=== PATIENT | female | born 1960 | race Caucasian/White ===

== ENCOUNTER 2016-08-17 20:29 | Emergency (ER) | payer BC ==
[2016-08-17 20:51] VITALS: BP 116/66
--- NOTE | 2016-08-17 21:02 | UC ---
Complaint Female HPI - HPI Summary HPI Summary: urinary burning x 1 day +frequency , no fever, no chills, no flank pain - History Of Current Complaint Chief Complaint: UCGU Stated Complaint: URINARY Time Seen by Provider: 08/17/16 20:38 Hx Obtained From: Patient Hx Last Menstrual Period: More than a year ago. Onset/Duration: Gradual Onset, Lasting Days - 1, Still Present Timing: Constant Severity Initially: Moderate Severity Currently: Moderate Character: Burning Aggravating Factor(s): Urination Associated Signs And Symptoms: Negative: Fever, Back Pain, Vaginal Bleeding/ Discharge, Vaginal Discharge, Nausea, Vomiting(# Of Episodes =), Genital Swelling, Genital Blisters, Retained Foregin Body (Specify) - Allergies/Home Medications Allergies/Adverse Reactions: Allergies Allergy/AdvReac Type Severity Reaction Status Date / Time Sulfa Drugs Allergy Intermediate Hives Verified 08/17/16 20:52 dust,mites Allergy Congestion Uncoded 08/17/16 20:52 Home Medications: Home Medications Calcium Carbonate-Vitamin D [Calcium 600+D] 1 tab PO DAILY 08/17/16 [History Confirmed 08/17/16] Ferrous Sulfate TAB* 325 mg PO DAILY 08/17/16 [History Confirmed 08/17/16] Naproxen Sodium [Naproxen Sodium 220 mg cap] 440 mg PO BID 08/17/16 [History Confirmed 08/17/16] PMH/Surg Hx/FS Hx/Imm Hx Endocrine History Of: Denies: Diabetes, Thyroid Disease, Hyperthyroidism, Hypothyroidism, Dyslipidemia Cardiovascular History Of: Denies: Cardiac Disorders, Hypertension, Pacemaker/ICD, Myocardial Infarction , Congestive Heart Failure, Atrial Fibrillation, Deep Vein Thrombosis, Bleeding Disorders Respiratory History Of: Reports: Asthma Denies: COPD, Bronchitis, Pneumonia, Pulmonary Embolism GI/ History Of: Denies: Gastroesophageal Reflux, Ulcer, Gastrointestinal Bleed, Gall Bladder Disease, Kidney Stones, Diverticulitis, Renal Disease, Urosepsis Neurological History Of: Denies: TIA, CVA, Dementia, Seizures, Migraine Psychological History Of: Denies: Anxiety, Depression, Bipolar Disorder, Schizophrenia, Post Traumatic Stress Disorder Cancer History Of: Denies: Lung Cancer, Colorectal Cancer, Breast Cancer, Prostate Cancer, Cervical Cancer Other History Of: Negative For: HIV, Hepatitis B, Hepatitis C, Anticoagulant Therapy - Surgical History Surgical History: Yes Surgery Procedure, Year, and Place: URETHRAL O.P. PROCEEDURE FOR UTSs - Family History Known Family History: Positive: Hypertension - Social History Alcohol Use: Weekly Alcohol Amount: wine Substance Use Type: None Smoking Status (MU): Former Smoker Type: Cigarettes Amount Used/How Often: smoked socially Have You Smoked in the Last Year: Yes When Did the Patient Quit Smoking/Using Tobacco: 2004 - Immunization History Most Recent Influenza Vaccination: none Review of Systems Constitutional: Negative Skin: Negative Eyes: Negative ENT: Negative Respiratory: Negative Genitourinary: Dysuria, Frequency, Urgency All Other Systems Reviewed And Are Negative: Yes Physical Exam Triage Information Reviewed: Yes Appearance: Well-Appearing, No Pain Distress, Well-Nourished Vital Signs: Initial Vital Signs Temp 97.7 F 08/17/16 20:39 Pulse 69 08/17/16 20:39 Resp 16 08/17/16 20:39 BP 116/66 08/17/16 20:39 Pulse Ox 100 08/17/16 20:39 Vital Signs Reviewed: Yes Eyes: Positive: Conjunctiva Clear ENT: Positive: Normal ENT inspection, Hearing grossly normal, Pharynx normal Neck: Positive: Supple, Nontender, No Lymphadenopathy Respiratory: Positive: Chest non-tender, Lungs clear, Normal breath sounds, No respiratory distress Cardiovascular: Positive: RRR, No Murmur, Pulses Normal Abdominal Exam: Normal Abdomen Description: Positive: Nontender, Soft. Negative: CVA Tenderness (R), CVA Tenderness (L), Distended, Guarding Bowel Sounds: Positive: Present Complaint Female Dx - Differential Dx/Diagnosis Provider Diagnoses: uti Discharge - Discharge Plan Condition: Stable Disposition: HOME Prescriptions: Nitrofurantoin Monohyd Macro [Macrobid] 100 mg PO BID #14 cap Patient Education Materials: Urinary Tract Infection in Women (ED) Referrals: Yenifer Vance NP [Primary Care Provider] - 7 Days
[2016-08-17] MEDS ORDERED: Nitrofurantoin Macrocrystals* 50 MG CAP PO ONE (21:04)
== END 2016-08-17 21:20 | disposition home or self-care (01) ==
LOC: UCCORT 20:29
DX: N39.0 Urinary tract infection, site not specified (principal); J45.909 Unspecified asthma, uncomplicated; Z88.2 Allergy status to sulfonamides; Z87.891 Personal history of nicotine dependence
CPT/HCPCS: 81003; 87086; 99212; A9270-GY; G0463

== ENCOUNTER 2016-09-03 13:43 | Emergency (ER) | payer BC ==
[2016-09-03 14:05] VITALS: BP 116/66
[2016-09-03] MEDS ORDERED: Ibuprofen TAB* 400 MG PO ONE (14:28)
--- NOTE | 2016-09-03 14:28 | UC ---
Lower Extremity/Ankle HPI - HPI Summary HPI Summary: complaint of left ankle pain after slipping and twisted her anlkle outward was able to ambulate after injury constant aching pain that radiates into her foot and up the front her lower leg resting lessens the pain ambulating and movement increases the pain hasn't taken anything for pain - History of Current Complaint Chief Complaint: UCLowerExtremity Stated Complaint: LEFT ANKLE INJURY Time Seen by Provider: 09/03/16 14:16 Hx Obtained From: Patient Hx Last Menstrual Period: More than a year ago. - Allergies/Home Medications Allergies/Adverse Reactions: Allergies Allergy/AdvReac Type Severity Reaction Status Date / Time Sulfa Drugs Allergy Intermediate Hives Verified 09/03/16 14:05 dust,mites Allergy Congestion Uncoded 09/03/16 14:05 PMH/Surg Hx/FS Hx/Imm Hx Previously Healthy: Yes Respiratory History: Asthma Other History Of: Negative For: HIV, Hepatitis B, Hepatitis C, Anticoagulant Therapy - Surgical History Surgical History: Yes Surgery Procedure, Year, and Place: URETHRAL O.P. PROCEEDURE FOR UTSs - Family History Known Family History: Positive: Hypertension Negative: Cardiac Disease, Diabetes - Social History Occupation: Employed Full-time Lives: With Family Alcohol Use: Weekly Alcohol Amount: wine Substance Use Type: None Smoking Status (MU): Former Smoker Type: Cigarettes Amount Used/How Often: smoked socially Have You Smoked in the Last Year: Yes When Did the Patient Quit Smoking/Using Tobacco: 2004 - Immunization History Most Recent Influenza Vaccination: none Review of Systems Constitutional: Negative Skin: Negative Eyes: Negative ENT: Negative Respiratory: Negative Cardiovascular: Negative Gastrointestinal: Negative Genitourinary: Negative Motor: Negative Neurovascular: Negative Musculoskeletal: Other: - left ankle pain Neurological: Negative Psychological: Negative All Other Systems Reviewed And Are Negative: Yes Physical Exam Triage Information Reviewed: Yes Appearance: No Pain Distress, Well-Nourished Vital Signs: Initial Vital Signs Temp 98.2 F 09/03/16 13:57 Pulse 81 09/03/16 13:57 Resp 20 09/03/16 13:57 BP 116/66 09/03/16 13:57 Pulse Ox 100 09/03/16 13:57 Vital Signs Reviewed: Yes Eyes: Positive: Conjunctiva Clear ENT: Positive: Pharynx normal, TMs normal Neck: Positive: No Lymphadenopathy Respiratory: Positive: Lungs clear, Normal breath sounds, No respiratory distress Cardiovascular: Positive: RRR, No Murmur, Pulses Normal Abdomen Description: Positive: Nontender, Soft Bowel Sounds: Positive: Present Musculoskeletal: Positive: Other: - LLE- tenderness and edma in lateral ligaments, tenderness over the top pf foot and in proximal 4th and 5th metatarsals Full ROM dorsi/plantar flexion, inversion & eversion. Veyo test negative.no stepoffs in Achilles tendon Neurological: Positive: Alert Psychological Exam: Normal Skin Exam: Normal Procedures - Splinting Hand-Made Type: fiberglass Splint: stirrup splint Pre-Proc Neuro Vasc Exam: normal Post-Proc Neuro Vasc Exam: normal Lower Extremity Course/Dx - Differential Dx/Diagnosis Differential Diagnosis/HQI/PQRI: Fracture (Closed), Sprain, Strain Provider Diagnoses: left non displaced lateral malleolus fracture Discharge - Discharge Plan Condition: Stable Disposition: HOME Prescriptions: oxyCODONE/Acetamin 5/325 MG* [Percocet 5/325 TAB*] 2 tab PO Q6H PRN #24 tab MDD 8 PRN Reason: Pain Referrals: Yenifer Vance NP [Primary Care Provider] - Carlos Walker MD [Medical Doctor] - Additional Instructions: Please call senior tax specialist for an appointment. They will evaluate and determine your treatment. Use crutches and wear splint until you are seen by orthopedics. Take percocet to control pain and reduce inflammation. Please review your discharge instructions. If your symptoms worsen call senior tax specialist or return to urgent care.
[2016-09-03] MEDS ORDERED: Ibuprofen TAB* 400 MG ONE (14:46)
--- NOTE | 2016-09-03 15:05 | RAD ---
Indication: Lateral malleolus pain and swelling following rolling injury. Comparison: June 04, 2015 DEXA scan. Technique: AP, mortise, and lateral views RIGHT ankle. Report: Bone density appears decreased throughout corresponding with osteopenia on prior DEXA scan. Nondisplaced horizontal fracture at the lateral malleolus below level of the talocrural joint line. Overlying soft tissue swelling and talocrural joint effusion. Negative for additional fracture. Small heel spurs. IMPRESSION: Burnett type A lateral malleolus fracture pattern.
== END 2016-09-03 16:17 | disposition home or self-care (01) ==
LOC: UCCORT 13:43
DX: S82.62XA Displaced fracture of lateral malleolus of left fibula, initial encounter for closed fracture (principal); Z87.891 Personal history of nicotine dependence; W01.0XXA Fall on same level from slipping, tripping and stumbling without subsequent striking against object, initial encounter; Y92.9 Unspecified place or not applicable; Z88.2 Allergy status to sulfonamides
CPT/HCPCS: 99213; A9270-GY; G0463

== ENCOUNTER 2016-09-05 14:00 | Emergency (ER) | payer BC ==
[2016-09-05 14:28] VITALS: BP 137/75
--- NOTE | 2016-09-05 14:54 | UC ---
Lower Extremity/Ankle HPI - HPI Summary HPI Summary: Patient hit the right second toe on a board, it is bruised and sore. - History of Current Complaint Chief Complaint: UCLowerExtremity Stated Complaint: right foot,2nd toe pain/injury Time Seen by Provider: 09/05/16 14:31 Hx Obtained From: Patient Hx Last Menstrual Period: More than a year ago. ?: No Onset/Duration: Sudden Onset, Lasting Days Severity Initially: Severe Severity Currently: Moderate Aggravating Factor(s): Standing, Ambulation Alleviating Factor(s): Rest Able to Bear Weight: Yes - Allergies/Home Medications Allergies/Adverse Reactions: Allergies Allergy/AdvReac Type Severity Reaction Status Date / Time Sulfa Drugs Allergy Intermediate Hives Verified 09/05/16 14:29 dust,mites Allergy Congestion Uncoded 09/05/16 14:29 Home Medications: Home Medications [id number] [Excedrin Extra Strength] 2 tab PO DAILY [History Confirmed 09/05/16] PMH/Surg Hx/FS Hx/Imm Hx Previously Healthy: Yes Other History Of: Negative For: HIV, Hepatitis B, Hepatitis C, Anticoagulant Therapy - Surgical History Surgical History: Yes Surgery Procedure, Year, and Place: URETHRAL O.P. PROCEEDURE FOR UTSs - Family History Known Family History: Positive: Hypertension Negative: Cardiac Disease, Diabetes - Social History Alcohol Use: Weekly Alcohol Amount: wine Substance Use Type: None Smoking Status (MU): Former Smoker Type: Cigarettes Amount Used/How Often: smoked socially Have You Smoked in the Last Year: Yes When Did the Patient Quit Smoking/Using Tobacco: 2004 - Immunization History Most Recent Influenza Vaccination: none Review of Systems Constitutional: Negative Skin: Bruising Eyes: Negative ENT: Negative Respiratory: Negative Cardiovascular: Negative Gastrointestinal: Negative Genitourinary: Negative Motor: Negative Musculoskeletal: Arthralgia Neurological: Negative Psychological: Negative All Other Systems Reviewed And Are Negative: Yes Physical Exam Triage Information Reviewed: Yes Appearance: Well-Appearing, Well-Nourished, Pain Distress Vital Signs: Initial Vital Signs Temp 97.8 F 09/05/16 14:23 Pulse 87 09/05/16 14:23 Resp 16 09/05/16 14:23 BP 137/75 09/05/16 14:23 Pulse Ox 98 09/05/16 14:23 Vital Signs Reviewed: Yes Eye Exam: Normal ENT Exam: Normal Dental Exam: Normal Neck exam: Normal Respiratory Exam: Normal Cardiovascular Exam: Normal Abdominal Exam: Normal Bowel Sounds: Positive: Present Musculoskeletal: Positive: Strength Intact, ROM Limited @ - in FLX, Edema @ Neurological Exam: Normal Psychological Exam: Normal Skin Exam: Normal Lower Extremity Course/Dx - Course Course Of Treatment: hx obtained, exam performed, meds reviewed, xray obtained no fracture noted. - Differential Dx/Diagnosis Differential Diagnosis/HQI/PQRI: Dislocation, Fracture (Closed), Sprain, Strain Provider Diagnoses: contusion to right second toe Discharge - Discharge Plan Condition: Stable Disposition: HOME Patient Education Materials: Foot Contusion (ED) Referrals: Yenifer Vance NP [Primary Care Provider] - Additional Instructions: 1. warm foot soaks, 2. keep elevated at rest. 3. if you feel like you are using it to much, rest. 4. FOllow up if not improving.
--- NOTE | 2016-09-05 14:57 | RAD ---
HISTORY: Right foot second digit trauma COMPARISONS: None VIEWS: 3, of the second digit of the right foot FINDINGS: BONE DENSITY: Normal. BONES: There is no displaced fracture. 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 SOFT TISSUES: Unremarkable. OTHER FINDINGS: None. IMPRESSION: NO ACUTE OSSEOUS INJURY. IF SYMPTOMS PERSIST, RECOMMEND REPEAT IMAGING.
== END 2016-09-05 15:15 | disposition home or self-care (01) ==
LOC: UCCORT 14:00
DX: S90.121A Contusion of right lesser toe(s) without damage to nail, initial encounter (principal); W22.8XXA Striking against or struck by other objects, initial encounter; Y93.9 Activity, unspecified; Y92.9 Unspecified place or not applicable; Z88.2 Allergy status to sulfonamides; Z87.891 Personal history of nicotine dependence
CPT/HCPCS: 99211; G0463

== ENCOUNTER 2018-01-16 09:35 | Emergency (ER) | payer BC ==
[2018-01-16 11:04] VITALS: BP 126/64
--- NOTE | 2018-01-16 11:43 | UC ---
General HPI - HPI Summary HPI Summary: 57-year-old woman comes in with a 3 day history of feeling fatigue and not well. She does have a mild generalized headache. No real sinus pressure rhinorrhea. Some chills no fevers measured. No cough or sore throat. No shortness of breath. No wheezes. Has been mildly nauseous not eating as much as usual but is able to eat. She has been using some genna aleshia which does help with the nausea some. She's been having some lower sternal chest pain about a 3 out of 10. Thornton constant for the last 3 days. No one things seems to make it better or worse. Activity or laying down does not make it better or worse eating does not make it better or worse. Pushing on it or taking a deep breath does not make it better or worse. She does not have high blood pressure high cholesterol or diabetes or GERD. - History of Current Complaint Chief Complaint: UCGeneralIllness Stated Complaint: NAUSEA,FATIGUE,NO APPETITE Time Seen by Provider: 01/16/18 10:59 Hx Last Menstrual Period: More than a year ago. Pain Intensity: 3 - Allergy/Home Medications Allergies/Adverse Reactions: Allergies Allergy/AdvReac Type Severity Reaction Status Date / Time Sulfa (Sulfonamide Allergy Intermediate Hives Verified 01/16/18 10:56 Antibiotics) acetaminophen [From Percocet] AdvReac Vomiting Verified 01/16/18 10:56 oxycodone [From Percocet] AdvReac Vomiting Verified 01/16/18 10:56 dust,mites Allergy Congestion Uncoded 01/16/18 10:56 Home Medications: Home Medications Cetirizine* [ZyrTEC 10 MG TAB*] 10 mg PO DAILY 01/16/18 [History Confirmed 01/16] PMH/Surg Hx/FS Hx/Imm Hx Respiratory History: Asthma Other History Of: Negative For: HIV, Hepatitis B, Hepatitis C, Anticoagulant Therapy - Surgical History Surgical History: Yes Surgery Procedure, Year, and Place: URETHRAL O.P. PROCEEDURE FOR UTSs - Family History Known Family History: Positive: Hypertension, Diabetes Negative: Cardiac Disease - Social History Alcohol Use: Weekly Alcohol Amount: wine Substance Use Type: None Smoking Status (MU): Former Smoker Type: Cigarettes Amount Used/How Often: smoked socially Have You Smoked in the Last Year: Yes When Did the Patient Quit Smoking/Using Tobacco: 2004 - Immunization History Most Recent Influenza Vaccination: none Review of Systems Constitutional: Chills Skin: Negative ENT: Negative Respiratory: Negative Cardiovascular: Chest Pain - SEE HPI Gastrointestinal: Nausea Genitourinary: Negative Motor: Negative Neurovascular: Negative Musculoskeletal: Negative Neurological: Negative Psychological: Negative Is Patient Immunocompromised?: No All Other Systems Reviewed And Are Negative: Yes Physical Exam Triage Information Reviewed: Yes Appearance: Well-Appearing, No Pain Distress, Well-Nourished Vital Signs: Initial Vital Signs Temp 97.3 F 01/16/18 10:57 Pulse 68 01/16/18 10:57 Resp 20 01/16/18 10:57 BP 126/64 01/16/18 10:57 Pulse Ox 100 01/16/18 10:57 Vital Signs Reviewed: Yes Eye Exam: Normal Eyes: Positive: Conjunctiva Clear ENT: Positive: Normal ENT inspection, Pharynx normal, TMs normal Neck exam: Normal Neck: Positive: Supple Respiratory Exam: Normal Respiratory: Positive: Lungs clear, Normal breath sounds, No respiratory distress, Other: - When I palpated the sternum initially there was no tenderness to palpation but then when I dictated the second time the patient said that did give her some discomfort Cardiovascular: Positive: RRR Abdomen Description: Positive: Nontender, Soft Bowel Sounds: Positive: Present Musculoskeletal Exam: Normal Musculoskeletal: Positive: Strength Intact, ROM Intact, No Edema Neurological Exam: Normal Neurological: Positive: Alert, Muscle Tone Normal Psychological Exam: Normal Psychological: Positive: Age Appropriate Behavior Skin Exam: Normal Diagnostics - EKG Cardiac Rate: NL - AT 11:14 Cardiac Rhythm: Sinus: Normal - 63 BPM Ectopy: None ST Segment: Normal - NO ST CHANGES Course/Dx - Course Course Of Treatment: The EKG does not show any signs of ischemia. With chest pain going on for 3 days the cause is unlikely cardiac. I discussed with the patient our inability to check a troponin or a d-dimer here and our inability to fully evaluate for heart attack or pulmonary embolus and the need to the emergency department for evaluation of those potential conditions. With a headache and the overall fatigue more probable that this is a viral etiology. We discussed doing labs right now the patient first and not do any not doing any labs at this time. The overall plan is to rest and treat symptomatically and follow-up with primary care doctor in the emergency department if her conditions worsens or she has any further questions or concerns. - Differential Dx - Multi-Symptom Provider Diagnoses: FATIGUE. HEADACHE. CHEST PAIN Discharge - Sign-Out/Discharge Documenting (check all that apply): Patient Departure All imaging exams completed and their final reports reviewed: No Studies - Discharge Plan Condition: Stable Disposition: HOME Patient Education Materials: Fatigue (ED), Acute Headache (ED), Chest Pain (ED) Forms: *Work Release Referrals: Yenifer Vance NP [Primary Care Provider] - Additional Instructions: FOLLOW UP WITH YOUR DOCTOR IF NOT COMPLETELY IMPROVED. GO TO THE EMERGENCY DEPARTMENT FOR ANY WORSENING OF YOUR CONDITION; CHEST PAIN, SHORTNESS OF BREATH OR QUESTIONS OR CONCERNS. - Billing Disposition and Condition Condition: STABLE Disposition: Home
== END 2018-01-16 11:53 | disposition home or self-care (01) ==
LOC: UCCORT 09:35
DX: R53.83 Other fatigue (principal); R51 Headache; R07.9 Chest pain, unspecified; J45.909 Unspecified asthma, uncomplicated; Z87.891 Personal history of nicotine dependence; Z88.2 Allergy status to sulfonamides; Z88.5 Allergy status to narcotic agent; Z91.038 Other insect allergy status
CPT/HCPCS: 93005; 99211; G0463

== ENCOUNTER 2018-03-18 12:50 | Emergency (ER) | payer BC ==
[2018-03-18 14:12] VITALS: BP 115/69
--- NOTE | 2018-03-18 14:41 | UC ---
Complaint Female HPI - HPI Summary HPI Summary: urinary symptoms for the past 2 days - History Of Current Complaint Chief Complaint: UCGU Stated Complaint: URINARY COMPLAINT Time Seen by Provider: 03/18/18 14:32 Hx Obtained From: Patient Hx Last Menstrual Period: More than a year ago. ?: No Onset/Duration: Sudden Onset, Lasting Days Timing: Constant Severity Initially: Mild Severity Currently: Moderate Pain Intensity: 7 Aggravating Factor(s): Urination - Allergies/Home Medications Allergies/Adverse Reactions: Allergies Allergy/AdvReac Type Severity Reaction Status Date / Time Sulfa (Sulfonamide Allergy Intermediate Hives Verified 03/18/18 14:03 Antibiotics) oxycodone [From Percocet] AdvReac Vomiting Verified 03/18/18 14:03 dust,mites Allergy Congestion Uncoded 03/18/18 14:03 Home Medications: Home Medications Urelle Rx, Urninary Antiseptic PRN 03/18/18 [History] PMH/Surg Hx/FS Hx/Imm Hx Previously Healthy: Yes Other History Of: Negative For: HIV, Hepatitis B, Hepatitis C, Anticoagulant Therapy - Surgical History Surgical History: Yes Surgery Procedure, Year, and Place: URETHRAL O.P. PROCEEDURE FOR UTSs. TONSILLECTOMY - Family History Known Family History: Positive: Hypertension, Diabetes Negative: Cardiac Disease - Social History Alcohol Use: Occasionally Alcohol Amount: wine Substance Use Type: None Smoking Status (MU): Former Smoker Type: Cigarettes Amount Used/How Often: smoked socially Have You Smoked in the Last Year: Yes When Did the Patient Quit Smoking/Using Tobacco: 2004 - Immunization History Most Recent Influenza Vaccination: none Review of Systems All Other Systems Reviewed And Are Negative: Yes Constitutional: Positive: Negative Skin: Positive: Negative Eyes: Positive: Negative ENT: Positive: Negative Respiratory: Positive: Negative Cardiovascular: Positive: Negative Gastrointestinal: Positive: Negative Genitourinary: Positive: Dysuria, Hematuria, Frequency Motor: Positive: Negative Neurovascular: Positive: Negative Musculoskeletal: Positive: Negative Neurological: Positive: Negative Psychological: Positive: Negative Is Patient Immunocompromised?: No Physical Exam Triage Information Reviewed: Yes Appearance: Well-Appearing, Well-Nourished, Pain Distress Vital Signs: Initial Vital Signs Temp 97.2 F 03/18/18 14:06 Pulse 58 03/18/18 14:06 Resp 16 03/18/18 14:06 BP 115/69 03/18/18 14:06 Pulse Ox 100 03/18/18 14:06 Vital Signs Reviewed: Yes Eye Exam: Normal ENT Exam: Normal Dental Exam: Normal Neck exam: Normal Neck: Positive: Supple, Nontender, No Lymphadenopathy Respiratory Exam: Normal Respiratory: Positive: Chest non-tender, Lungs clear, Normal breath sounds Cardiovascular Exam: Normal Cardiovascular: Positive: RRR, No Murmur, Pulses Normal Abdominal Exam: Normal Abdomen Description: Positive: CVA Tenderness (R) - neg, CVA Tenderness (L) - neg Bowel Sounds: Positive: Present Musculoskeletal Exam: Normal Neurological Exam: Normal Psychological Exam: Normal Skin Exam: Normal Complaint Female Dx - Course Course Of Treatment: hx obtained, exam performed ,meds reviewed, treated for positive UA - Differential Dx/Diagnosis Differential Diagnosis/HQI/PQRI: Ureteral Stone, Urinary Tract Infection Provider Diagnosis: UTI (urinary tract infection) Discharge - Sign-Out/Discharge Documenting (check all that apply): Patient Departure All imaging exams completed and their final reports reviewed: No Studies - Discharge Plan Condition: Stable Disposition: HOME Prescriptions: Cephalexin CAP* [Keflex CAP*] 500 mg PO BID #14 cap Patient Education Materials: Urinary Tract Infection in Women (DC) Referrals: Yenifer Vance NP [Primary Care Provider] - - Billing Disposition and Condition Condition: STABLE Disposition: Home
--- NOTE | 2018-03-20 07:01 | UC ---
- Progress Note Progress Note: notify pt NO UTI STOP antibiotic Recheck if still symptomatic Course/Dx - Diagnoses Provider Diagnoses: UTI (urinary tract infection) Discharge - Sign-Out/Discharge Documenting (check all that apply): Post-Discharge Follow Up All imaging exams completed and their final reports reviewed: No Studies - Discharge Plan Condition: Stable Disposition: HOME Prescriptions: Cephalexin CAP* [Keflex CAP*] 500 mg PO BID #14 cap Patient Education Materials: Urinary Tract Infection in Women (DC) Referrals: Yenifer Vance NP [Primary Care Provider] - - Billing Disposition and Condition Condition: STABLE Disposition: Home
== END 2018-03-18 15:04 | disposition home or self-care (01) ==
LOC: UCCORT 12:50
DX: N39.0 Urinary tract infection, site not specified (principal); Z88.2 Allergy status to sulfonamides; Z88.5 Allergy status to narcotic agent; Z87.891 Personal history of nicotine dependence
CPT/HCPCS: 81003; 87086; 99212; G0463

== ENCOUNTER 2019-01-26 07:11 | Emergency (ER) | payer BC ==
[2019-01-26 07:23] VITALS: BP 132/74
--- NOTE | 2019-01-26 08:09 | UC ---
Throat Pain/Nasal Leonel HPI - HPI Summary HPI Summary: 58-year-old woman comes in with a chief complaint of sinusitis symptoms. They' ve been going on more than a week around 10 days. Patient has sinus pressure and tooth pain primarily on the upper molars on the left. No recent fevers measured. She does feel fatigued.. Is green rhinorrhea no cough or chest congestion. She's been using aspirin which does help with the headaches. Also has been using a netti pot. - History of Current Complaint Chief Complaint: UCGeneralIllness Stated Complaint: SINUS PRESSURE Time Seen by Provider: 01/26/19 07:53 Hx Last Menstrual Period: More than a year ago. Pain Intensity: 5 - Allergies/Home Medications Allergies/Adverse Reactions: Allergies Allergy/AdvReac Type Severity Reaction Status Date / Time Sulfa (Sulfonamide Allergy Intermediate Hives Verified 01/26/19 07:23 Antibiotics) oxycodone [From Percocet] AdvReac Vomiting Verified 01/26/19 07:23 dust,mites Allergy Congestion Uncoded 01/26/19 07:23 PMH/Surg Hx/FS Hx/Imm Hx Previously Healthy: Yes Respiratory History: Asthma Other History Of: Negative For: HIV, Hepatitis B, Hepatitis C, Anticoagulant Therapy - Surgical History Surgical History: Yes Surgery Procedure, Year, and Place: URETHRAL O.P. PROCEEDURE FOR UTSs. TONSILLECTOMY - Family History Known Family History: Positive: Hypertension, Diabetes Negative: Cardiac Disease - Social History Alcohol Use: Occasionally Alcohol Amount: wine Substance Use Type: None Smoking Status (MU): Former Smoker Type: Cigarettes Amount Used/How Often: smoked socially Have You Smoked in the Last Year: Yes When Did the Patient Quit Smoking/Using Tobacco: 2004 - Immunization History Most Recent Influenza Vaccination: none Vaccination Up to Date: Yes Review of Systems All Other Systems Reviewed And Are Negative: Yes Constitutional: Positive: Fatigue, Other - see hpi Skin: Positive: Negative Eyes: Positive: Negative ENT: Positive: Nasal Discharge, Sinus Congestion, Sinus Pain/Tenderness Respiratory: Positive: Negative Cardiovascular: Positive: Negative Gastrointestinal: Positive: Negative Motor: Positive: Negative Neurovascular: Positive: Negative Musculoskeletal: Positive: Negative Neurological: Positive: Negative Psychological: Positive: Negative Is Patient Immunocompromised?: No Physical Exam Triage Information Reviewed: Yes Appearance: No Pain Distress, Well-Nourished, Ill-Appearing - mild Vital Signs: Initial Vital Signs Temp 98.7 F 01/26/19 07:20 Pulse 88 01/26/19 07:20 Resp 16 01/26/19 07:20 BP 132/74 01/26/19 07:20 Pulse Ox 99 01/26/19 07:20 Vital Signs Reviewed: Yes Eye Exam: Normal Eyes: Positive: Conjunctiva Clear ENT: Positive: Pharyngeal erythema, Nasal congestion, Nasal drainage, TMs normal Neck: Positive: Supple Respiratory: Positive: Lungs clear, Normal breath sounds, No respiratory distress Cardiovascular: Positive: RRR Musculoskeletal: Positive: Strength Intact, ROM Intact Neurological: Positive: Alert, Muscle Tone Normal Psychological: Positive: Age Appropriate Behavior Skin Exam: Normal Throat Pain/Nasal Course/Dx - Course Course Of Treatment: 10+ DAYS OF SX - Differential Dx/Diagnosis Provider Diagnosis: Sinusitis Discharge ED - Sign-Out/Discharge Documenting (check all that apply): Patient Departure All imaging exams completed and their final reports reviewed: No Studies - Discharge Plan Condition: Stable Disposition: HOME Prescriptions: Amoxicillin/Clavulanate TAB* [Augmentin TAB 875*] 875 mg PO BID #20 tab Fluticasone NASAL SPRAY 50MCG* [Flonase NASAL SPRAY 50MCG*] 2 spray BOTH NARES DAILY #1 btl Patient Education Materials: Sinusitis (ED) Referrals: Yenifer Vance NP [Primary Care Provider] - Additional Instructions: FOLLOW UP WITH YOUR DOCTOR IF NOT COMPLETELY IMPROVED. GET REEVALUATED SOONER IF NOT IMPROVING OR YOUR CONDITION WORSENS OR ANY QUESTIONS OR CONCERNS. - Billing Disposition and Condition Condition: STABLE Disposition: Home
== END 2019-01-26 08:14 | disposition home or self-care (01) ==
LOC: UCCORT 07:11
DX: J32.9 Chronic sinusitis, unspecified (principal); J45.909 Unspecified asthma, uncomplicated; Z87.891 Personal history of nicotine dependence; Z88.2 Allergy status to sulfonamides; Z88.5 Allergy status to narcotic agent; Z91.09 Other allergy status, other than to drugs and biological substances
CPT/HCPCS: 99212; G0463